=== PATIENT | female | born 1950 | race Two or more races ===

== ENCOUNTER 2018-09-19 12:40 | Emergency (ER) | payer MEDICARE, OTHER ==
[~2018-09-19] VITALS: Ht 170.2 cm; Wt 72.6 kg
[2018-09-19 12:51] VITALS: BP 148/74
[2018-09-19] MEDS ORDERED: LIDOCAINE 1%-EPI 1:100,000 20 ML VIAL ONE (14:41)
== END 2018-09-19 16:34 | disposition home or self-care (01) ==
LOC: ER 12:55
DX: S40.852A Superficial foreign body of left upper arm, initial encounter (principal); W45.8XXA Other foreign body or object entering through skin, initial encounter; Y93.89 Activity, other specified; Y92.89 Other specified places as the place of occurrence of the external cause; Y99.0 Civilian activity done for income or pay
CPT/HCPCS: 10120; 73060 ×2; 99284; A4606; J3490

== ENCOUNTER 2019-09-18 18:20 | Inpatient (IN) | payer MEDICARE, OTHER ==
[~2019-09-18] VITALS: Ht 170.2 cm; Wt 46.7 kg
--- NOTE | 2019-09-18 18:25 | NUR ---
GENA RA 61 From Home "SOB started today +Rales on arrival CPAP given RTx sats went from low 80 -low 90. BS-92, pt to bed 5, placed on monitor, dr arreguin at bedside for eval
--- NOTE | 2019-09-18 18:39 | NUR ---
urine collected and sent to lab
--- NOTE | 2019-09-18 18:50 | NUR ---
med recon nurse: notes unable to obtain home meds lists due to cognitive impairement and no family at bedside. placed a call to esther martinez () at [phone], but number has been disconnected or no longer in service. will f/u once family is available.
[2019-09-18] MEDS ORDERED: ALBUTEROL FS 2.5 MG/3 ML VIAL.NEB NEB ONE (19:00)
[2019-09-18] MEDS ORDERED: IPRATROPIUM NEB FS 0.5 MG/2.5 ML AMPUL.NEB NEB ONE (19:00)
[2019-09-18 19:14] LABS: BASOPHILS % (AUTO) 1.1 % (0.0-2.0); EOSINOPHILS % (AUTO) 2.8 % (0.0-6.0); HEMATOCRIT 49 % (33-45); HEMOGLOBIN 15.9 g/dL (11.5-14.8); LYMPHOCYTES # (AUTO) 1.3 /CMM (0.8-4.8); LYMPHOCYTES % (AUTO) 30.1 % (20.0-44.0); MEAN CORPUSCULAR HGB CONC 33 g/dl (31.0-36.0); MEAN CORPUSCULAR VOLUME 88 fL (82-100); MONOCYTES # (AUTO) 0.2 /CMM (0.1-1.30); MONOCYTES % (AUTO) 5.3 % (2.0-12.0); NEUTROPHILS # (AUTO) 2.5 /CMM (1.8-8.9); NEUTROPHILS % (AUTO) 60.7 % (43.0-81.0); PLATELET COUNT (AUTO) 121 /CMM (150-450); WHITE BLOOD COUNT (AUTO) 4.2 K/uL (4.3-11.0)
[2019-09-18 19:19] LABS: APPEARANCE,URINE Clear (CLEAR); BILIRUBIN,URINE Negative (NEGATIVE); BLOOD, URINE Moderate Ery/uL (NEGATIVE); COLOR,URINE Yellow (YELLOW); KETONES,URINE Negative (NEGATIVE); LEUKOCYTE ESTERASE ,URINE Negative (NEGATIVE); NITRITE, URINE Positive (NEGATIVE); PH,URINE 5.5 (5.0-8.0); PROTEIN,URINE Trace mg/dl (NEGATIVE); UGLUCOSE Negative (NEGATIVE); UROBILINOGEN,URINE 0.2 EU/dL (0.2)
[2019-09-18] MEDS ORDERED: ASPI-1152 PO (19:21)
[2019-09-18] MEDS ORDERED: DONE10TA44 PO (19:21)
[2019-09-18] MEDS ORDERED: CHOL500062 PO (19:21)
[2019-09-18] MEDS ORDERED: ATOR20TA PO (19:21)
[2019-09-18] MEDS ORDERED: CARB-93 PO (19:21)
[2019-09-18 19:26] LABS: CALCIUM, SERUM 9.7 mg/dL (8.5-10.1); CARBON DIOXIDE 25 mmol/L (21-32); CHLORIDE 106 mmol/L (98-107); CREATININE 1.1 mg/dL (0.6-1.3); GLUCOSE 109 mg/dL (74-106); POTASSIUM 3.9 mmol/L (3.5-5.1); SODIUM SERUM 140 mmol/L (136-145); UREA NITROGEN, BLOOD 24 mg/dL (7-18)
[2019-09-18 19:31] LABS: ALANINE AMINOTRANSFERASE < 6 U/L (12-78); ALBUMIN 3.6 g/dL (3.4-5.0); ALKALINE PHOSPHATASE 104 U/L (46-116); ASPARTATE AMINOTRANSFERASE 18 U/L (15-37); BILIRUBIN,DIRECT 0.1 mg/dL (0.0-0.2); BILIRUBIN,TOTAL 0.4 mg/dL (0.2-1.0); TOTAL PROTEIN, SERUM 6.8 g/dL (6.4-8.2)
[2019-09-18] MEDS ORDERED: IPRATROPIUM NEB FS 0.5 MG/2.5 ML AMPUL.NEB ONE (19:36)
[2019-09-18] MEDS ORDERED: ALBUTEROL FS 2.5 MG/3 ML VIAL.NEB ONE (19:36)
[2019-09-18 19:49] LABS: BACTERIA,URINE Many /HPF (None Seen); SQUAMOUS EPITHELIAL CELL,UR Few /HPF (None Seen)
[2019-09-18 20:18] LABS: ABG BASE EXCESS 0.8 mmol/L; ABG OXYGEN SATURATION 97.5 % (92.0-98.5); ABG PH 7.426 (7.350-7.450); ABG PO2 102.4 mmHg (75.0-100.0); COHb 0.6 % (0.5-1.5); MetHb 0.6 % (0.0-1.5); O2Hb 96.3 % (94.0-97.0); SITE, ABG Right Radial; VENT MODE, BG Nasal Cannula
--- NOTE | 2019-09-18 20:18 | NUR ---
CALLED [facility], PAGED SHAY
[2019-09-18] MEDS ORDERED: IV NS 0.9% 1,000 ML BAG IV ONE (20:30)
[2019-09-18] MEDS ORDERED: VANCOMYCIN 1 GM in IV D5W 250 ML IV ONE (20:30)
[2019-09-18] MEDS ORDERED: MEROPENEM 1,000 MG in IV NS 0.9% 100 ML IV ONE (20:30)
--- NOTE | 2019-09-18 21:12 | NUR ---
REPORT GIVEN TO JEANNIE ROBLES FOR KARRIE PT WILL BE TRANSPORTED TO 3RD FLOOR
[2019-09-18] MEDS ORDERED: ONDANSETRON HCL/PF 4 MG/2 ML VIAL IVP PRN (22:30)
[2019-09-18] MEDS ORDERED: ACETAMINOPHEN 325 MG TABLET PO PRN (22:30)
[2019-09-18] MEDS ORDERED: MAG HYDROX/AL HYDROX/SIMETH 30 ML UDC PO PRN (22:30)
[2019-09-18] MEDS ORDERED: ZOLPIDEM TARTRATE 5 MG TABLET PO PRN (22:30)
[2019-09-18] MEDS ORDERED: Z GUARD REMEDY 2 OZ OINT TP PRN (22:30)
[2019-09-18] MEDS ORDERED: MAGNESIUM HYDROXIDE 30 ML UDC PO PRN (22:30)
[2019-09-19 00:31] VITALS: BP 157/79
[2019-09-19 04:00] VITALS: BP 163/75
[2019-09-19 06:51] LABS: BASOPHILS % (AUTO) 0.4 % (0.0-2.0); EOSINOPHILS % (AUTO) 0.8 % (0.0-6.0); HEMATOCRIT 43 % (33-45); HEMOGLOBIN 13.9 g/dL (11.5-14.8); LYMPHOCYTES # (AUTO) 1.1 /CMM (0.8-4.8); LYMPHOCYTES % (AUTO) 16.1 % (20.0-44.0); MEAN CORPUSCULAR HGB CONC 33 g/dl (31.0-36.0); MEAN CORPUSCULAR VOLUME 86 fL (82-100); MONOCYTES # (AUTO) 0.4 /CMM (0.1-1.30); MONOCYTES % (AUTO) 5.2 % (2.0-12.0); NEUTROPHILS # (AUTO) 5.4 /CMM (1.8-8.9); NEUTROPHILS % (AUTO) 77.5 % (43.0-81.0); PLATELET COUNT (AUTO) 114 /CMM (150-450); RED BLOOD CELL COUNT(AUTO) 4.95 MIL/uL (4.0-5.2)
--- NOTE | 2019-09-19 06:56 | NUR ---
RN NOTES PATIENT ALERT TO SELF, 2LPM VIA NC, DESATURATING ON ROOM AIR, UNABLE TO CLEAR SECRETION, SUCTIONED PRN, NPO, SWALLOW EVAL, WOUND CONSULT FOR RIGHT EAR, F/U BLOOD CX
[2019-09-19 07:14] LABS: THYROID STIMULATING HORMONE 0.129 uIU/mL (0.358-3.74)
[2019-09-19 07:15] LABS: ALBUMIN 2.9 g/dL (3.4-5.0); BILIRUBIN,TOTAL 0.6 mg/dL (0.2-1.0); CALCIUM, SERUM 8.5 mg/dL (8.5-10.1); CREATININE 0.9 mg/dL (0.6-1.3); POTASSIUM 3.5 mmol/L (3.5-5.1); TOTAL PROTEIN, SERUM 5.7 g/dL (6.4-8.2)
[2019-09-19] MEDS: PANTOPRAZOLE 40 MG TABLET.DR PO SCH (07:30)
[2019-09-19] MEDS: IV NS 0.9% 1,000 ML IV PRN ×2 (07:33→15:28)
[2019-09-19] MEDS ORDERED: FEE PK DOSING 1 MIN EA MC ONE (07:39)
--- NOTE | 2019-09-19 07:47 | NUR ---
EMBEDDED CASE MANAGER OPENING NOTE PATIENT IN BED RESTING COMFORTABLY. PATIENT IN NO ACUTE DISTRESS. NO SOB NOTED. PATIENT BREATHING IS EVEN AND UNLABORED. PATIENT ON OXYGEN 2L NC SATURATING >95% SPO2. PATIENT ON CARDIAC MONITORING READING SINUS RHYTHM HR 81. PATIENT BED ALARM IS ON. SAFETY PRECAUTIONS IN PLACE. PATIENT BED IS LOCKED AND IN LOWEST POSITION. CALL LIGHT WITHIN REACH. WILL CONTINUE TO MONITOR.
[2019-09-19 08:00] VITALS: BP 163/74
[2019-09-19] MEDS: GUAIFENESIN LA 600 MG TABLET.SA PO SCH ×2 (08:09→21:00)
[2019-09-19] MEDS: VANCOMYCIN 0.75 GM in IV D5W 250 ML IV SCH ×2 (08:52→21:35)
[2019-09-19] MEDS ORDERED: MEROPENEM 1 G in IV NS 0.9% 100 ML IV SCH (09:00)
[2019-09-19] MEDS: MEROPENEM 1 G in IV NS 0.9% 100 ML IV SCH ×2 (10:17→23:11)
--- NOTE | 2019-09-19 10:30 | NUR ---
MS RN NOTE PER SPEECH THERAPIST RECOMMENDATION FOR XRAY VIDEO OF THROAT. SPOKE WITH DR. TOLEDO REGARDING ST EVALUATION RECOMMENDATION. PER DR. TOLEDO ORDERS FOR XRAY VIDEO OF THROAT.
--- NOTE | 2019-09-19 11:02 | NUR ---
WOUND CARE CONSULT: PT PRESENTS WITH INCONTINENCE AND RT EAR DRY LESION, PRESENT ON ADMISSION. RECOMMENDATIONS MADE FOR SKIN PROTECTION. DISCUSSED WITH NURSING STAFF. PT TENDS TO MOVE ABOUT IN BED AND MOVES HER LOWER EXTREMITIES FREQUENTLY WHILE DRAWING HER LEGS IN TO HER BODY. DEFER TO MD FOR EAR LESION. DISCUSSED WITH DR VILA AND MARKETING CAMPAIGN ANALYST FLORENCE. WILL SEE PRN. ESCALONA IN AGREEMENT WITH PLAN OF CARE. Addendum: 09/19/19 at 1104 by VANCE CORTEZ WNDNU Amended: Links added.
--- NOTE | 2019-09-19 12:31 | NUR ---
MS RN NOTE SPOKE WITH DR. TOLEDO, PER MD WILL CONTINUE HOME MEDS ONCE SWALLOW EVAL IS COMPLETE AND SPEECH THERAPIST APPROVES. AT THIS TIME SPEECH THERAPIST HAS NOT APPROVED AND TO MAINTAIN NPO STATUS. PER DR. TOLEDO AWARE AND MAINTAIN ON NPO STATUS.
--- NOTE | 2019-09-19 12:45 | NUR ---
MS RN NOTE INFORMED AND NOTIFIED DR. TOLEDO THAT XRAY VIDEO SWALLOW WILL BE DONE TOMORROW. PER RADIOLOGY JERRY HANKINS HAVE XRAY DONE TILL TOMORROW.
[2019-09-19 16:00] VITALS: BP 141/60
--- NOTE | 2019-09-19 18:35 | NUR ---
MS RN CLOSING NOTE PATIENT IN NO ACUTE DISTRESS. NO SOB NOTED. PATIENT BREATHING IS EVEN AND UNLABORED. PATIENT HAS BEEN SUCTIONED PRN. PATIENT ON OXYGEN 2L NC SATURATING 97% SPO2. PER DR. TOLEDO MAINTAIN NPO STATUS DUE TO PATIENT UNABLE TO PASS SWALLOW EVAL AND EXCESSIVE COUGHING. PATIENT BED ALARM IS ON. HOB IS ELEVATED. SAFETY PRECAUTIONS IN PLACE. PATIENT IV PATENT AND INTACT. PATIENT BED IS LOCKED AND IN LOWEST POSITION. CALL LIGHT WITHIN REACH. WILL ENDORSE CARE TO PM SHIFT FOR KARRIE. Addendum: 09/19/19 at 1842 by DIANA VAN RN MS RN CLOSING NOTE PATIENT IN NO ACUTE DISTRESS. NO SOB NOTED. PATIENT BREATHING IS EVEN AND UNLABORED. PATIENT HAS BEEN SUCTIONED PRN. PATIENT ON OXYGEN 2L NC SATURATING 97% SPO2. PER DR. TOLEDO MAINTAIN NPO STATUS DUE TO PATIENT UNABLE TO PASS SWALLOW EVAL AND EXCESSIVE COUGHING. PATIENT BED ALARM IS ON. HOB IS ELEVATED. PATIENT KEPT CLEAN, DRY AND COMFORTABLE THROUGHOUT MY SHIFT.SAFETY PRECAUTIONS IN PLACE. PATIENT IV PATENT AND INTACT. PATIENT BED IS LOCKED AND IN LOWEST POSITION. CALL LIGHT WITHIN REACH. WILL ENDORSE CARE TO PM SHIFT FOR KARRIE.
--- NOTE | 2019-09-19 19:30 | NUR ---
ms edison initial notes received report from am nurse while doing our rounds and seen pt in bed awake and confused, bedbound . no signs of any acute distress noted. respiration even and non-labored. she still with IVF infusing well. kept her warm and comfortable at all times. on semi fowlers position with side rails x3 up and bed in low and lock and position . will continue monitoring.
[2019-09-19 20:00] VITALS: BP 153/62
[2019-09-20] MEDS: IV NS 0.9% 1,000 ML IV PRN (04:21)
--- NOTE | 2019-09-20 06:52 | NUR ---
MS SEMICONDUCTOR LAB TECHNICIAN CLOSING NOTES PT AWAKE AND ALERT NO SIGNS OF ANY DISTRESS OR ANY DISCOMFORT NOTED. STABLE KYLE THE NIGHT . IVF NS AT 75ML.HR STILL INFUSING. PT STILL NPO FOR SWALLOW EVAL TODAY. KEPT HER WARM AND COMFORTABLE AT ALL TIMES. BED IN LOW AND LOCK IN POSITION WITH SIDE RAILS X3 UP. WILL ENDORSE TO AM NURSE FOR CONTINUITY OF CARE.
--- NOTE | 2019-09-20 07:15 | NUR ---
M/S RN NOTES PATIENT AWAKE IN BED, NO RESPIRATORY DISTRESS, NO C/O PAIN AT THIS TIME. SKIN WARM TO TOUCH. IV NS INFUSING ON THE RFA #20G INTACT AND PATENT. LFA #20G SL, INTACT AND PATENT. PATIENT'S NEEDS ATTENDED, BED ON LOWEST LOCKED POSITION, CALL LIGHT WITHIN REACH. WILL CONTINUE TO MONITOR.
[2019-09-20 08:00] VITALS: BP_SYST 112; BP_SYST 148; BP_DIAS 58; BP_DIAS 65
[2019-09-20 08:17] LABS: BASOPHILS % (AUTO) 0.5 % (0.0-2.0); EOSINOPHILS % (AUTO) 3.9 % (0.0-6.0); HEMATOCRIT 42 % (33-45); HEMOGLOBIN 13.6 g/dL (11.5-14.8); LYMPHOCYTES # (AUTO) 0.7 /CMM (0.8-4.8); LYMPHOCYTES % (AUTO) 16.3 % (20.0-44.0); MEAN CORPUSCULAR HGB CONC 33 g/dl (31.0-36.0); MEAN CORPUSCULAR VOLUME 86 fL (82-100); MONOCYTES # (AUTO) 0.2 /CMM (0.1-1.30); MONOCYTES % (AUTO) 4.9 % (2.0-12.0); NEUTROPHILS # (AUTO) 3.3 /CMM (1.8-8.9); NEUTROPHILS % (AUTO) 74.4 % (43.0-81.0); PLATELET COUNT (AUTO) 114 /CMM (150-450); RED BLOOD CELL COUNT(AUTO) 4.86 MIL/uL (4.0-5.2); WHITE BLOOD COUNT (AUTO) 4.5 K/uL (4.3-11.0)
[2019-09-20] MEDS: PANTOPRAZOLE 40 MG TABLET.DR PO SCH (08:27)
[2019-09-20 08:47] LABS: CALCIUM, SERUM 8.7 mg/dL (8.5-10.1); CREATININE 0.7 mg/dL (0.6-1.3); MAGNESIUM 2.1 mg/dL (1.8-2.4); PHOSPHORUS 2.8 mg/dL (2.5-4.9); POTASSIUM 3.3 mmol/L (3.5-5.1)
[2019-09-20] MEDS: VANCOMYCIN 0.75 GM in IV D5W 250 ML IV SCH (09:00)
[2019-09-20] MEDS: GUAIFENESIN LA 600 MG TABLET.SA PO SCH ×2 (09:00→20:36)
[2019-09-20] MEDS: MEROPENEM 1 G in IV NS 0.9% 100 ML IV SCH ×2 (10:07→21:27)
[2019-09-20] MEDS ORDERED: POTASSIUM CHLORIDE 20 MEQ TAB.PRT.SR PO ONE (12:30)
[2019-09-20] MEDS: POTASSIUM CL. PREMIX PERIPHER. 50 ML IV SCH ×4 (13:09→16:27)
[2019-09-20 16:00] VITALS: BP 140/85
--- NOTE | 2019-09-20 19:00 | NUR ---
M/S RN NOTES PATIENT RESTING IN BED, NO RESPIRATORY DISTRESS, NO C/O PAIN AT THIS TIME. SKIN WARM TO TOUCH, IV ACCESS SITES INTACT AND PATENT. PATIENT STILL ON NPO STATUS. PATIENT'S NEEDS ATTENDED, BED ON LOWEST LOCKED POSITION, CALL LIGHT WITHIN REACH.
--- NOTE | 2019-09-20 19:46 | NUR ---
MS RN NOTES PATIENT IN BED, AWAKE, NONVERBAL. ALERT AND ORIENTED X 1. BREATHING EVEN AND UNLABORED ON ROOM AIR. SHOWS NO SIGNS OF ACUTE RESPIRATORY DISTRESS. NO ACUTE PAIN. . IV ON LFA 22G AND RFA RUNNING NS AT 75ML/HR. SHOWS NO SIGNS OF INFILTRATION NO REDNESS. SAFETY PRECAUTIONS IN PLACE. BED IN LOWEST POSITION, LOCKED, AND CALL LIGHT KEPT WITHIN REACH. WILL CONTINUE TO MONITOR.
[2019-09-20 20:00] VITALS: BP 165/67
[2019-09-20 20:30] VITALS: BP 157/72
--- NOTE | 2019-09-21 02:58 | NUR ---
MS RN NOTES PATIENT IS NPO AND CHECKED PATIENT BG 62. PAGED DR. DAY FOR ORDERS. WILL CONTINUE TO MONITOR.
[2019-09-21] MEDS: IPRATROPIUM NEB FS 0.5 MG/2.5 ML AMPUL.NEB NEB PRN ×2 (03:19→21:07)
[2019-09-21] MEDS: ALBUTEROL FS 2.5 MG/3 ML VIAL.NEB NEB PRN ×2 (03:19→21:07)
--- NOTE | 2019-09-21 03:20 | NUR ---
MS RN NOTES RECEIVED ORDERS FROM SHAY TO CHANGE IV TO D5NS AT 75ML/HR. ORDERS VERIFIED, CARRIED OUT. WILL CONTINUE TO MONITOR.
[2019-09-21] MEDS: IV D5/ 0.9% NACL 1,000 ML IV PRN (03:29)
--- NOTE | 2019-09-21 06:47 | NUR ---
MS RN NOTES PATIENT IN BED, WITH INTERMITTENT SLEEP, NONVERBAL. ALERT AND ORIENTED X 1. BREATHING EVEN AND UNLABORED ON ROOM AIR. SHOWS NO SIGNS OF ACUTE RESPIRATORY DISTRESS. NO ACUTE PAIN. . IV ON LFA 22G AND RFA RUNNING D5NS AT 75ML/HR. SHOWS NO SIGNS OF INFILTRATION NO REDNESS. ALL DUE MEDICATIONS GIVEN. SAFETY PRECAUTIONS IN PLACE. BED IN LOWEST POSITION, LOCKED, AND CALL LIGHT KEPT WITHIN REACH. WILL ENDORSE TO ONCOMING NURSE.
[2019-09-21 06:55] LABS: BASOPHILS % (AUTO) 0.7 % (0.0-2.0); HEMATOCRIT 41 % (33-45); HEMOGLOBIN 13.2 g/dL (11.5-14.8); LYMPHOCYTES # (AUTO) 0.5 /CMM (0.8-4.8); LYMPHOCYTES % (AUTO) 14.3 % (20.0-44.0); MEAN CORPUSCULAR HGB CONC 33 g/dl (31.0-36.0); MEAN CORPUSCULAR VOLUME 85 fL (82-100); MONOCYTES # (AUTO) 0.2 /CMM (0.1-1.30); MONOCYTES % (AUTO) 6.4 % (2.0-12.0); NEUTROPHILS # (AUTO) 2.8 /CMM (1.8-8.9); NEUTROPHILS % (AUTO) 74.6 % (43.0-81.0); PLATELET COUNT (AUTO) 115 /CMM (150-450); RED BLOOD CELL COUNT(AUTO) 4.76 MIL/uL (4.0-5.2); WHITE BLOOD COUNT (AUTO) 3.8 K/uL (4.3-11.0)
[2019-09-21 07:18] LABS: CALCIUM, SERUM 8.3 mg/dL (8.5-10.1); CREATININE 0.7 mg/dL (0.6-1.3); PHOSPHORUS 2.1 mg/dL (2.5-4.9); POTASSIUM 3.3 mmol/L (3.5-5.1)
--- NOTE | 2019-09-21 07:20 | NUR ---
M/S RN NOTES PATIENT AWAKE IN BED, NO RESPIRATORY DISTRESS, NO S/S OF PAIN OR DISCOMFORT. SKIN WARM TO TOUCH, IV ACCESS SITES INTACT AND PATENT, D5 NS INFUSING ON THE RFA #22G @ 75ML/HR. PATIENT'S NEEDS ATTENDED, BED ON LOWEST LOCKED POSITION, CALL LIGHT WITHIN REACH. WILL CONTINUE TO MONITOR.
[2019-09-21] MEDS: PANTOPRAZOLE 40 MG TABLET.DR PO SCH (07:30)
[2019-09-21 08:00] VITALS: BP 117/67
[2019-09-21] MEDS: GUAIFENESIN LA 600 MG TABLET.SA PO SCH ×2 (09:00→21:00)
--- NOTE | 2019-09-21 09:23 | NUR ---
WOUND CARE CONSULT: PT PRESENTS WITH LESION TO RT EAR, UNKNOWN ETIOLOGY WITH SOME DRAINAGE NOTED TO INSIDE OF EAR, PRESENT ON ADMISSION. RECOMMEND SURGICAL CONSULT. DISCUSSED WITH PMD. DR PARIS REDMOND NOTIFIED OF SURGICAL CONSULT REQUEST. RECOMMENDATIONS MADE FOR SKIN PROTECTION. DISCUSSED WITH NURSING STAFF. WILL SEE PRN. Addendum: 09/21/19 at 0924 by VANCE CORTEZ WNDNU Amended: Links added.
[2019-09-21] MEDS: MEROPENEM 1 G in IV NS 0.9% 100 ML IV SCH ×2 (10:34→21:15)
[2019-09-21] MEDS: POTASSIUM CL. PREMIX PERIPHER. 50 ML IV SCH ×4 (10:35→17:55)
[2019-09-21] MEDS ORDERED: Sodium Phosphate 15 MMOL in IV D5W 250 ML IV ONE (13:00)
[2019-09-21 16:00] VITALS: BP 167/85
[2019-09-21] MEDS: hydrALAZINE HCL IV 20 MG VIAL IV PRN (16:52)
[2019-09-21 20:00] VITALS: BP 150/70
--- NOTE | 2019-09-21 20:35 | NUR ---
RN NOTES: RECEIVED AWAKE ON BED,EYES OPEN, NON VERBAL , SHE HAS GOOD EYE CONTACT WHEN RN TALK TO HER AND INTRODUCE MYSELF, A/0X1, RESPOND TO HER NAME AND PER ENDORSEMENT SHE IS ABLE TO UNDERSTAND SIMPLE INSTRUCTION ADN ANSWER USING GESTURE.2 IV SITE, 1ST:LFA G#22, 2ND:RFA G#22 WITH NS AT 75 ML/HR, INTACT AND PATENT. ORIENTED TO UNIT AND STAFF, BED, FALL, SAFETY AND ASPIRATION PRECAUTION OBSERVED, BED LOW AND LOCKED,CALL LIGHT WITHIN EASY REACH.INCONTINENT BOTH B/B. Addendum: 09/22/19 at 0134 by KELVIN SHER RN CORRECTION: IVF OF D5NS AT 75 ML/HR ONGOING NOT NORMAL SALINE ONLY.
--- NOTE | 2019-09-21 20:49 | NUR ---
RN NOTES: AROUND 2029 HER CALLED ASKING REGARDING THE PROCEDURE FOR PEG INSERTION, EXPLAINED TO HIM THAT SHE MIGHT HAVE IT TOMORROW BUT ITS NOT YET CONFIRMED, HE STRONGLY REQUEST HE WANTS TO SPEAK WITH THE GI DOCTOR PRIOR TO THE PROCEDURE AND HE WANTS EXPLANATION HOW IT WILL BE DONE. WILL ENDORSE TOMORROW TO NOTIFY THE ONCE GI CAME IN.PATIENT REMAINED ON NPO.
--- NOTE | 2019-09-21 20:57 | NUR ---
RN NOTES: NOTED WITH ON AND OFF COUGH, CALLED RT TO RENDER PRN NEBULIZATION.AWAITING.
--- NOTE | 2019-09-21 21:08 | NUR ---
RN NOTES: MUCINEX PO NOT GIVEN, PATIENT IS ON NPO, FOR POSSIBLE PROCEDURE TOMORROW, RT CAME NEBULIZATION RENDERED, PRN FOR COUGH.
--- NOTE | 2019-09-22 01:37 | NUR ---
RN NOTES: AFTER NEBULIZATION SHE LOOKS MORE COMFORTABLE,NO COUGH NOTED SINCE 0000, ABLE TO REST AND SLEEP, NEEDS ANTICIPATED, REPOSITIONING DONE, BRIEF CHANGE, SKIN TREATMENT RENDERED.CALL LIGHT KEPT WITHIN EASY REACH, ON CLOSE VISUAL CHECK.
[2019-09-22] MEDS: IV D5/ 0.9% NACL 1,000 ML IV PRN ×2 (01:46→17:20)
[2019-09-22 06:32] LABS: BASOPHILS % (AUTO) 0.8 % (0.0-2.0); EOSINOPHILS % (AUTO) 8.8 % (0.0-6.0); HEMATOCRIT 42 % (33-45); HEMOGLOBIN 13.6 g/dL (11.5-14.8); LYMPHOCYTES # (AUTO) 0.9 /CMM (0.8-4.8); LYMPHOCYTES % (AUTO) 30.2 % (20.0-44.0); MEAN CORPUSCULAR HGB CONC 33 g/dl (31.0-36.0); MEAN CORPUSCULAR VOLUME 85 fL (82-100); MONOCYTES # (AUTO) 0.4 /CMM (0.1-1.30); MONOCYTES % (AUTO) 12.6 % (2.0-12.0); NEUTROPHILS # (AUTO) 1.5 /CMM (1.8-8.9); NEUTROPHILS % (AUTO) 47.6 % (43.0-81.0); PLATELET COUNT (AUTO) 122 /CMM (150-450); WHITE BLOOD COUNT (AUTO) 3.1 K/uL (4.3-11.0)
[2019-09-22 06:38] LABS: CALCIUM, SERUM 8.4 mg/dL (8.5-10.1); CREATININE 0.7 mg/dL (0.6-1.3); PHOSPHORUS 2.6 mg/dL (2.5-4.9); POTASSIUM 3.4 mmol/L (3.5-5.1)
--- NOTE | 2019-09-22 07:24 | NUR ---
RN NOTES: MORNING CARE DONE AT 0600, NO BM, SHE PEE ONLY, CLEAN AND CHANGED, REPOSITIONED, KEPT COMFORTABLE IN BED, NOT IN PAIN, ENDORSED FOR CONTINUITY OF CARE, TO OBTAIN CONSENT FOR PEG INSERTION AT 1230PM, PRE-OP CHECKLIST STARTED, AWAITING FOR HER , HE WANTS TO SPEAK WITH THE DOCTOR.
[2019-09-22] MEDS: PANTOPRAZOLE 40 MG TABLET.DR PO SCH (07:30)
--- NOTE | 2019-09-22 07:30 | NUR ---
RN NOTES RECEIVED PATIENT IN BED RESTING COMFORTABLY IN MODERATE HIGH BACK REST, EYES OPEN, NON VERBAL, A/0X1, RESPOND TO HER NAME AND PER ENDORSEMENT SHE IS ABLE TO UNDERSTAND SIMPLE INSTRUCTION AND ANSWER USING GESTURE. IVF OF D5NS AT 75 ML/HR, INTACT AND PATENT, SAFETY AND ASPIRATION PRECAUTION, BED LOW AND LOCKED,CALL LIGHT WITHIN EASY REACH. WILL CONTINUE TO MONITOR.
--- NOTE | 2019-09-22 07:41 | NUR ---
RN NOTES: -AWAKE, IVF ONGOING, NOT IN PAIN, ENDORSED FOR CONTINUITY OF CARE.KEPT NPO.
[2019-09-22 08:23] VITALS: BP 153/66
[2019-09-22] MEDS: GUAIFENESIN LA 600 MG TABLET.SA PO SCH ×2 (08:47→20:09)
[2019-09-22] MEDS: MEROPENEM 1 G in IV NS 0.9% 100 ML IV SCH (09:20)
[2019-09-22] MEDS: POTASSIUM CL. PREMIX PERIPHER. 50 ML IV SCH ×2 (10:00→11:20)
[2019-09-22] MEDS ORDERED: TETRACAINE/BENZOCAINE/BUTAMBEN 56 GM SPRAY TP ONE (12:34)
--- NOTE | 2019-09-22 12:49 | NUR ---
RN NOTES PATIENT PICKED UP BY HOSPITAL STAFF FROM SURGERY VIA GURNEY, PATIENT GOING FOR SURGERY, ON BEDSIDE. NO SIGNS OF ANY DISTRESS NOTED.
--- NOTE | 2019-09-22 15:05 | NUR ---
RN NOTES CAMEBACK FROM SURGERY, PEG PLACEMENT DONE AND SUCCESSFUL, NO SIGNS OF DISTRESS NOTED AT THIS TIME. NO NEW ORDERS WILL CONTINUE TO MONITOR.
[2019-09-22] MEDS: HYDROCODONE/APAP 5/325MG 1 EACH TABLET PO PRN ×2 (15:47→22:05)
[2019-09-22] MEDS ORDERED: MIDAZOLAM HCL 2 MG/2ML VIAL IV ONE (15:52)
[2019-09-22] MEDS: CEFAZOLIN 1 GM in IV D5W 50 ML IV SCH (17:16)
[2019-09-22] MEDS: hydrALAZINE HCL IV 20 MG VIAL IV PRN (17:20)
[2019-09-22 18:08] VITALS: BP 150/80
--- NOTE | 2019-09-22 18:37 | NUR ---
RN NOTES PATIENT IN BED RESTING COMFORTABLY IN MODERATE HIGH BACK REST, EYES OPEN, NON VERBAL, A/O X1, ABLE TO UNDERSTAND SIMPLE INSTRUCTION AND ANSWER USING GESTURE. S/P PEG TUBE PLACEMENT TODAY, IVF OF D5NS AT 75 ML/HR, INTACT AND PATEN, SAFETY PRECAUTION, BED LOW AND LOCKED,CALL LIGHT WITHIN EASY REACH. WILL ENDORSE TO CAREER PLACEMENT SERVICES COUNSELOR NURSE FOR KARRIE.
--- NOTE | 2019-09-22 19:27 | NUR ---
MS RN OPENING NOTE RECEIVED PATIENT IN BED. A/OX1. PATIENT IS ABLE TO FOLLOW SIMPLE COMMANDS, PER REPORT ANSWERS QUESTIONS WITH FINGERS, ONE FOR YES 2 FOR NO. ON OXYGEN 2L/MIN VIA NASAL CANNULA. RESPIRATIONS ARE EVEN AND UNLABORED. NO S/S SOB NOTED. NO S/S OF PAIN AT THIS TIME. IN NO APPARENT DISTRESS. IV ACCESS IN LFA#22 PATENT AND SALINE LOCKED, RFA#22 IS LEAKING WILL REMOVE IV ACCESS. PATIENT IS S/P PEG PLACEMENT. GTUBE IS PRESENT, DRESSING INTACT, WRAPPED WITH ABDOMINAL BINDER. BED IS LOW AND LOCKED, HOB ELEVATED IN HIGH FOWLERS, SIDE RIALS UP X2, BED ALARM ON. CALL LIGHT WITHIN REACH. WILL CONTINUE TO MONITOR.
[2019-09-22 20:00] VITALS: BP 146/54
--- NOTE | 2019-09-22 22:06 | NUR ---
MS RN NOTE ADMINISTERED PRN NORCO 5/325 FOR PAIN ASSESS BY FLACC SCALE. PATIENT IS MOANING, RESTLESS, KICKING, GUARDING. PATIENT WAS ABLE TO CONFIRM HER PAIN BY USING HER FINGERS. ONE FOR YES SHE IS IN PAIN. WILL CONTINUE TO MONITOR.
[2019-09-23] MEDS: CEFAZOLIN 1 GM in IV D5W 50 ML IV SCH ×3 (01:24→17:23)
--- NOTE | 2019-09-23 01:34 | NUR ---
MS RN NOTE ADMINISTERED PRN TYLENOL 650MG FOR PAIN. PATIENT WAS MOANING, KICKING, CRYING. INFORMED HER I AM NOT ABLE TO PROVIDE PAIN MEDICATION AT THIS TIME AND THAT TYLENOL IS AVAILABLE. ASKED IF SHE WOULD LIKE THE TYLENOL SHE RAISED ONE FINGER INDICATING YES. WILL CONTINUE TO MONITOR.
[2019-09-23] MEDS: HYDROCODONE/APAP 5/325MG 1 EACH TABLET PO PRN (04:14)
--- NOTE | 2019-09-23 04:15 | NUR ---
MS RN NOTE ADMINISTERED PRN NORCO 5/325 FOR PAIN USING FLACC SCALE. PATIENT IS MOANING, CRYING AND KICKING, USED ONE FINGER TO SIGNIFY YES SHE IS IN PAIN. WILL CONTINUE TO MONITOR.
--- NOTE | 2019-09-23 06:12 | NUR ---
MS RN CLOSING NOTE PATIENT IN BED. A/OX1. PATIENT REMAINS ABLE TO FOLLOW SIMPLE COMMANDS, ANSWERS QUESTIONS WITH FINGERS, ONE FOR YES 2 FINGERS FOR NO. ON OXYGEN 2L/MIN VIA NASAL CANNULA. RESPIRATIONS ARE EVEN AND UNLABORED. NO SOB NOTED. MANAGED PAIN WITH NORCO 5/325 THROUGHOUT NIGHT.NO DISTRESS NOTED. IV ACCESS MAINTAINED IN LFA#22 PATENT AND SALINE LOCKED, RFA#22 RUNNING D5NS@75ML/HR. PATIENT IS S/P PEG PLACEMENT. GTUBE IS MAINTAINED REMAINS WRAPPED WITH ABDOMINAL BINDER. BED REMAINS LOW AND LOCKED, HOB ELEVATED IN HIGH FOWLERS, SIDE RIALS UP X3, BED ALARM ON. CALL LIGHT WITHIN REACH. WILL ENDORSE TO NEXT SHIFT
[2019-09-23 06:14] LABS: BASOPHILS % (AUTO) 0.3 % (0.0-2.0); EOSINOPHILS % (AUTO) 4.6 % (0.0-6.0); HEMATOCRIT 43 % (33-45); HEMOGLOBIN 13.9 g/dL (11.5-14.8); LYMPHOCYTES # (AUTO) 1.1 /CMM (0.8-4.8); LYMPHOCYTES % (AUTO) 20.3 % (20.0-44.0); MEAN CORPUSCULAR HGB CONC 33 g/dl (31.0-36.0); MEAN CORPUSCULAR VOLUME 86 fL (82-100); MONOCYTES # (AUTO) 0.6 /CMM (0.1-1.30); MONOCYTES % (AUTO) 10.3 % (2.0-12.0); NEUTROPHILS # (AUTO) 3.6 /CMM (1.8-8.9); NEUTROPHILS % (AUTO) 64.5 % (43.0-81.0); PLATELET COUNT (AUTO) 138 /CMM (150-450); RED BLOOD CELL COUNT(AUTO) 4.99 MIL/uL (4.0-5.2); WHITE BLOOD COUNT (AUTO) 5.6 K/uL (4.3-11.0)
[2019-09-23 06:57] LABS: CALCIUM, SERUM 8.7 mg/dL (8.5-10.1); CREATININE 0.7 mg/dL (0.6-1.3); MAGNESIUM 1.9 mg/dL (1.8-2.4); POTASSIUM 3.7 mmol/L (3.5-5.1)
--- NOTE | 2019-09-23 07:30 | NUR ---
MS/RN Opening note Received patient AO x 1 non verbal, able to responds all stimuli. patient s/p peg, no residual observed, does no appears pain or any this Comfort at this time. Respiratory even and unlabored with oxygen at 2LPM. No s/s of adverse reaction from atb therapy. Skin iswarm to touch, clean/dry, intact new g tube site and IV site. Keep lower position of bed with elevated HOB. Call light within reach, will continue to monitor.
[2019-09-23] MEDS: PANTOPRAZOLE 40 MG TABLET.DR PO SCH (07:48)
[2019-09-23 08:00] VITALS: BP 153/68
[2019-09-23] MEDS: GUAIFENESIN LA 600 MG TABLET.SA PO SCH ×2 (09:03→21:19)
[2019-09-23] MEDS ORDERED: JEVITY 1.2 CAL 1,000 ML BOTTLE GT PRN (10:00)
[2019-09-23] MEDS: JEVITY 1.2 CAL 1,000 ML BOTTLE GT PRN (10:45)
[2019-09-23] MEDS ORDERED: NEUTRA PHOS 1 POWD.PACKET GT ONE (11:00)
[2019-09-23 16:00] VITALS: BP 142/60
--- NOTE | 2019-09-23 18:50 | NUR ---
MS/RN Closing note Patient in bed comfortably, does no appears pain or any discomfort. Pt started g tube feeding at 40 ml rat this time and torelated. Skin is warm to touch, clean/dry, intact IV site. Respiratory even and unlabored with oxygen at 2PLM. Keep lower position of the bed with elevated HOB, Call light within reach, will endorse hotel night auditor.
--- NOTE | 2019-09-23 19:38 | NUR ---
MS RN OPENING NOTES PATIENT RECEIVED RESTING IN BED A/O X 1, NONVERBAL. ON 2L OF O2 VIA NC BREATHING EVEN AND UNLABORED, NO SOB NOTED. NO SIGNS OF ACUTE DISTRESS. NO COMPLAINTS OF PAIN OR DISCOMFORT, NO FACIAL GRIMACING NOTED. G TUBE NOTED AND INTACT RUNNING 40 CC/ HR. IV ON L FA #22 RUNNING D5NS @ 75 ML/HR. SAFETY PRECAUTIONS IN PLACE WITH BED IN LOWEST POSITION, CALL LIGHT WITHIN REACH, BREAKS ON, AND SIDE RAILS UP. WILL CONTINUE TO MONITOR THROUGHOUT THE NIGHT.
[2019-09-23 19:50] VITALS: BP 153/93
[2019-09-23 20:00] VITALS: BP 153/98
[2019-09-23] MEDS: IV D5/ 0.9% NACL 1,000 ML IV PRN (21:33)
--- NOTE | 2019-09-24 01:00 | NUR ---
MS RN NOTES G TUBE RESIDUAL LESS THAN 60, INCREASED FEEDING TO 60 / HR. WILL CONTINUE TO MONITOR
[2019-09-24] MEDS: CEFAZOLIN 1 GM in IV D5W 50 ML IV SCH ×2 (01:43→10:05)
--- NOTE | 2019-09-24 06:30 | NUR ---
MS RN CLOSING NOTES PATIENT RESTING IN BED A/O X 1, NONVERBAL. ON 2L OF O2 VIA NC BREATHING EVEN AND UNLABORED, NO SOB NOTED. NO SIGNS OF ACUTE DISTRESS. NO COMPLAINTS OF PAIN OR DISCOMFORT, NO FACIAL GRIMACING NOTED. G TUBE NOTED AND INTACT RUNNING 65 CC/ HR. IV ON L FA #22 RUNNING D5NS @ 75 ML/HR. SAFETY PRECAUTIONS IN PLACE WITH BED IN LOWEST POSITION, CALL LIGHT WITHIN REACH, BREAKS ON, AND SIDE RAILS UP. PATIENT WAS KEPT CLEAN AND DRY THROUGHOUT THE NIGHT, ALL NEEDS ATTENDED TO. WILL ENDORSE TO ONCOMING SHIFT ABOUT KARRIE.
[2019-09-24 06:38] LABS: BASOPHILS % (AUTO) 0.3 % (0.0-2.0); EOSINOPHILS % (AUTO) 5.8 % (0.0-6.0); HEMATOCRIT 40 % (33-45); HEMOGLOBIN 13.2 g/dL (11.5-14.8); LYMPHOCYTES # (AUTO) 1.3 /CMM (0.8-4.8); LYMPHOCYTES % (AUTO) 24.9 % (20.0-44.0); MEAN CORPUSCULAR HGB CONC 33 g/dl (31.0-36.0); MEAN CORPUSCULAR VOLUME 85 fL (82-100); MONOCYTES # (AUTO) 0.5 /CMM (0.1-1.30); MONOCYTES % (AUTO) 9.8 % (2.0-12.0); NEUTROPHILS # (AUTO) 3.1 /CMM (1.8-8.9); NEUTROPHILS % (AUTO) 59.2 % (43.0-81.0); PLATELET COUNT (AUTO) 117 /CMM (150-450); RED BLOOD CELL COUNT(AUTO) 4.71 MIL/uL (4.0-5.2); WHITE BLOOD COUNT (AUTO) 5.2 K/uL (4.3-11.0)
[2019-09-24 06:52] LABS: CALCIUM, SERUM 8.3 mg/dL (8.5-10.1); CREATININE 0.7 mg/dL (0.6-1.3); MAGNESIUM 1.9 mg/dL (1.8-2.4); PHOSPHORUS 2.5 mg/dL (2.5-4.9); POTASSIUM 3.5 mmol/L (3.5-5.1)
--- NOTE | 2019-09-24 07:30 | NUR ---
MS/RN Opening note Received patient AO x 1 non verbal, able to responds all stimuli. patient s/p peg, and pt tolerated formula at 65ml, no residual observed at this time. Does no appears pain or any this Comfort at this time. Respiratory even and unlabored with oxygen at 2LPM. No s/s of adverse reaction from atb therapy. Skin iswarm to touch, clean/dry, intact new g tube site and IV site. Keep lower position of bed with elevated HOB. Call light within reach, will continue to monitor.
[2019-09-24] MEDS: PANTOPRAZOLE 40 MG TABLET.DR PO SCH (07:57)
[2019-09-24] MEDS: GUAIFENESIN LA 600 MG TABLET.SA PO SCH (08:19)
[2019-09-24] MEDS: JEVITY 1.2 CAL 1,000 ML BOTTLE GT PRN (08:19)
[2019-09-24 09:00] VITALS: BP 147/57
[2019-09-24] MEDS: IV D5/ 0.9% NACL 1,000 ML IV PRN (10:16)
--- NOTE | 2019-09-24 13:20 | NUR ---
Patient going transfer, given report [facility]/Nick ROBLES.
--- NOTE | 2019-09-24 14:30 | NUR ---
2EMTs picked up patient and given report, pt left accompanied by . in stable condition. Pt was wearing with yellow color ring with red color stone.
== END 2019-09-24 14:40 | DRG 189 ==
LOC: ER 18:21 → TELE 20:57 → MED 09-19 09:16
PROVIDERS: ADMIT Hospitalist; ATTEND Student in an Organized Health Care Education/Training Program
PROC: 0DH63UZ Insertion of Feeding Device into Stomach, Percutaneous Approach (ICD-10-PCS; principal; 2019-09-22)
DX: J96.01 Acute respiratory failure with hypoxia (principal); E43 Unspecified severe protein-calorie malnutrition; R53.2 Functional quadriplegia; D68.59 Other primary thrombophilia; I50.32 Chronic diastolic (congestive) heart failure; N39.0 Urinary tract infection, site not specified; E87.2 Acidosis; Z68.1 Body mass index [BMI] 19.9 or less, adult; R64 Cachexia; E86.0 Dehydration; G20 Parkinson's disease; I11.0 Hypertensive heart disease with heart failure; Z79.82 Long term (current) use of aspirin; Z90.49 Acquired absence of other specified parts of digestive tract; Z79.899 Other long term (current) drug therapy; Z74.01 Bed confinement status; D69.6 Thrombocytopenia, unspecified; G31.85 Corticobasal degeneration; I70.0 Atherosclerosis of aorta; D75.1 Secondary polycythemia; K29.70 Gastritis, unspecified, without bleeding; R13.10 Dysphagia, unspecified; Z82.49 Family history of ischemic heart disease and other diseases of the circulatory system; E78.5 Hyperlipidemia, unspecified; F02.80 Dementia in other diseases classified elsewhere, unspecified severity, without behavioral disturbance, psychotic disturbance, mood disturbance, and anxiety; K26.9 Duodenal ulcer, unspecified as acute or chronic, without hemorrhage or perforation
CPT/HCPCS: 36415; 36600; 43246; 71045-TC; 74230-TC; 80048-TC; 80053-TC; 80061-TC; 80076-TC; 80202-TC; 81000-TC; 82803-TC; 82962-TC; 83605-TC; 83735-TC; 84100-TC; 84443-TC; 84484-TC; 85025-TC; 85730-TC; 87040-TC; 87081-TC; 87086-TC; 87186-TC; 92611-TC; 94799-TC; A9563; G0378; J0360; J0690; J2185; J2250; J3370; J3480; J7030; J7040; J7042; J7050; J7060

== ENCOUNTER 2021-03-13 20:42 | Inpatient (IN) | payer MEDICARE, OTHER ==
[~2021-03-13] VITALS: Ht 162.6 cm; Wt 38.6 kg
[~2021-03-13 20:42] MED LIST: ASPI-1420 PEG; ATOR20TA PEG; CARB-93 PEG; CHOL500062 PEG; DONE10TA44 PEG
--- NOTE | 2021-03-13 20:50 | NUR ---
PATIENT CAME TO ER BED 5 BIBRA FROM HOME. PATIENT WAS ON 2L N/C WHEN HOMEHEALTH NURSE NOTICED 82% O2 SATURATION. PATIENT WAS PLACED ON 4L N/C WITH 94% O2 SATURATION. PATIENT HX OF CVA AND DEMENTIA. PATIENT IS AAOX0 AND NONVERBAL AT BASELINE. PATIENT IS BREATHING EVENLY AND UNLABORED ON 4L N/C @ 89%. PATIENT IS CONNECTED TO THE SERVICE DESK ANALYST.
--- NOTE | 2021-03-13 21:47 | NUR ---
CALLED FOR COVID SWABS
[2021-03-13 21:48] LABS: BASOPHILS % (AUTO) 0.7 % (0.0-2.0); EOSINOPHILS % (AUTO) 1.8 % (0.0-6.0); HEMATOCRIT 45 % (33-45); HEMOGLOBIN 14.9 g/dL (11.5-14.8); LYMPHOCYTES # (AUTO) 1.6 K/uL (0.8-4.8); LYMPHOCYTES % (AUTO) 23.9 % (20.0-44.0); MEAN CORPUSCULAR HGB CONC 33 g/dl (31.0-36.0); MEAN CORPUSCULAR VOLUME 91 fL (82-100); MONOCYTES # (AUTO) 0.5 K/uL (0.1-1.30); MONOCYTES % (AUTO) 7.1 % (2.0-12.0); NEUTROPHILS # (AUTO) 4.4 K/uL (1.8-8.9); NEUTROPHILS % (AUTO) 66.5 % (43.0-81.0); PLATELET COUNT (AUTO) 132 K/uL (150-450); RED BLOOD CELL COUNT(AUTO) 4.99 MIL/uL (4.0-5.2); WHITE BLOOD COUNT (AUTO) 6.6 K/uL (4.3-11.0)
[2021-03-13 21:57] LABS: CARBON DIOXIDE 29 mmol/L (21-32); CHLORIDE 112 mmol/L (98-107); CREATININE 0.8 mg/dL (0.6-1.3); GLUCOSE 128 mg/dL (74-106); POTASSIUM 3.6 mmol/L (3.5-5.1); SODIUM SERUM 149 mmol/L (136-145); UREA NITROGEN, BLOOD 44 mg/dL (7-18)
[2021-03-13 22:10] LABS: ALANINE AMINOTRANSFERASE 33 U/L (12-78); ALBUMIN 3.1 g/dL (3.4-5.0); ALKALINE PHOSPHATASE 87 U/L (46-116); ASPARTATE AMINOTRANSFERASE 22 U/L (15-37); BILIRUBIN,DIRECT 0.2 mg/dL (0.0-0.2); BILIRUBIN,TOTAL 0.5 mg/dL (0.2-1.0); TOTAL PROTEIN, SERUM 6.7 g/dL (6.4-8.2)
--- NOTE | 2021-03-13 22:19 | NUR ---
xray at bedside
--- NOTE | 2021-03-13 22:24 | NUR ---
covid swabs sent to lab
--- NOTE | 2021-03-13 22:30 | NUR ---
CALLED [facility] TO HAVE IMAGE READ
--- NOTE | 2021-03-13 22:45 | NUR ---
EPIC AMUSEMENT PARK ENTERTAINER PAGED FOR PANEL
[2021-03-13] MEDS ORDERED: CEFTRIAXONE 1 G in IV D5W 50 ML IV ONE (23:00)
[2021-03-13] MEDS ORDERED: AZITHROMYCIN 500 MG in IV D5W 250 ML IV ONE (23:00)
[2021-03-13] MEDS ORDERED: IV NS 0.9% 1,000 ML IV ONE (23:00)
[2021-03-13] MEDS ORDERED: AZITHROMYCIN 500 MG VIAL ONE (23:01)
[2021-03-13] MEDS ORDERED: CEFTRIAXONE 1GM BAG (ER ONLY) 50 ML IV ONE (23:03)
[2021-03-13] MEDS ORDERED: ONDANSETRON HCL/PF 4 MG/2 ML VIAL IVP PRN (23:30)
[2021-03-13] MEDS ORDERED: IV NS 0.9% 1,000 ML IV PRN (23:30)
[2021-03-13] MEDS ORDERED: ACETAMINOPHEN 325 MG TABLET PO PRN (23:30)
[2021-03-13] MEDS ORDERED: ZOLPIDEM TARTRATE 5 MG TABLET PO PRN (23:30)
[2021-03-13] MEDS ORDERED: ACETAMINOPHEN 650 MG/SUPP.RECT RC PRN (23:30)
[2021-03-13] MEDS ORDERED: Z GUARD REMEDY 2 OZ OINT TP PRN (23:30)
[2021-03-13 23:58] LABS: CREATINE KINASE, TOTAL 49 U/L (26-192); FERRITIN 79 ng/mL (8-388)
[2021-03-14 00:14] LABS: C-REACTIVE PROTEIN < 0.2 mg/dL (0.0-0.9)
--- NOTE | 2021-03-14 00:15 | NUR ---
HOFF CATH INSERTED PER MD ORDERED. STRICT STERILE TECHNIQUE OBSERVED DURING THE PROCEDURE. URINE SENT TO LAB
--- NOTE | 2021-03-14 00:16 | NUR ---
urine sent to lab
[2021-03-14 00:26] LABS: BILIRUBIN,URINE Negative (NEGATIVE); COLOR,URINE YELLOW (YELLOW); LEUKOCYTE ESTERASE ,URINE Negative (NEGATIVE); NITRITE, URINE Negative (NEGATIVE); PH,URINE 5.5 (5.0-8.0); PROTEIN,URINE Negative (NEGATIVE); UGLUCOSE Negative (NEGATIVE); UROBILINOGEN,URINE 0.2 EU/dL (0.2)
--- NOTE | 2021-03-14 04:38 | NUR ---
lab at bedside
[2021-03-14] MEDS: ENOXAPARIN SODIUM 40 MG/0.4 ML DISP.SYRIN SQ SCH (04:43)
[2021-03-14 04:50] LABS: BASOPHILS % (AUTO) 0.5 % (0.0-2.0); EOSINOPHILS % (AUTO) 2.5 % (0.0-6.0); HEMATOCRIT 44 % (33-45); HEMOGLOBIN 14.3 g/dL (11.5-14.8); LYMPHOCYTES # (AUTO) 1.7 K/uL (0.8-4.8); LYMPHOCYTES % (AUTO) 26.7 % (20.0-44.0); MEAN CORPUSCULAR HGB CONC 33 g/dl (31.0-36.0); MEAN CORPUSCULAR VOLUME 91 fL (82-100); MONOCYTES # (AUTO) 0.5 K/uL (0.1-1.30); MONOCYTES % (AUTO) 7.8 % (2.0-12.0); NEUTROPHILS % (AUTO) 62.5 % (43.0-81.0); PLATELET COUNT (AUTO) 119 K/uL (150-450); RED BLOOD CELL COUNT(AUTO) 4.83 MIL/uL (4.0-5.2); WHITE BLOOD COUNT (AUTO) 6.4 K/uL (4.3-11.0)
[2021-03-14] MEDS ORDERED: CEFTRIAXONE 1GM BAG (ER ONLY) 50 ML IV ONE (04:50)
[2021-03-14] MEDS ORDERED: ENOXAPARIN SODIUM 40 MG/0.4 ML DISP.SYRIN SQ ONE (04:50)
[2021-03-14] MEDS ORDERED: AZITHROMYCIN 500 MG VIAL ONE (04:51)
[2021-03-14 05:01] LABS: ALBUMIN 2.7 g/dL (3.4-5.0); BILIRUBIN,TOTAL 0.5 mg/dL (0.2-1.0); CALCIUM, SERUM 8.8 mg/dL (8.5-10.1); CREATININE 0.5 mg/dL (0.6-1.3); MAGNESIUM 2.5 mg/dL (1.8-2.4); PHOSPHORUS 3.1 mg/dL (2.5-4.9); POTASSIUM 3.5 mmol/L (3.5-5.1); TOTAL PROTEIN, SERUM 6.1 g/dL (6.4-8.2)
--- NOTE | 2021-03-14 06:40 | NUR ---
BED 104 AFTER CHANGE OF SHIFT
--- NOTE | 2021-03-14 07:20 | NUR ---
RN NOTE RECEIVED REPORT FROM THEATRE INSTRUCTOR AL AWAITING PATIENT FOR ADMISSION
--- NOTE | 2021-03-14 07:22 | NUR ---
REPORT GIVEN TO JOSE DE JESUS ROBLES FOR KARRIE.
--- NOTE | 2021-03-14 07:30 | NUR ---
RN NOTE RECEIVED PATIENT FROM ER, PATIENT ON O2 VIA NC @4LPM O2 SAT OF 95%, BREATHING EVENA ND UNLABORED, PATIENT HAS A GT FEEDING AND HOFF CATHETER NO HEMATURIA NOTED, BODY CHECK DONE WILL CONTINUE TO MONITOR PATIENT.
--- NOTE | 2021-03-14 07:44 | NUR ---
PATIENT TRANSFERRED TO ROOM 104 VIA ACLS PROTOCOL. IN NO DISTRES NOTED. ENDORESD TO JOSE DE JESUS ROBLES FOR KARRIE.
[2021-03-14 08:00] VITALS: BP 133/73
[2021-03-14] MEDS ORDERED: AMLO-212 PEG (08:43)
[2021-03-14] MEDS: PANTOPRAZOLE 40 MG VIAL IV SCH (09:50)
[2021-03-14 12:00] VITALS: BP 133/73
[2021-03-14] MEDS: IPRATROPIUM NEB FS 0.5 MG/2.5 ML AMPUL.NEB NEB SCH ×4 (13:26→23:30)
[2021-03-14] MEDS: ALBUTEROL HALF STRENGTH 1.25 MG/3 ML VIAL.NEB NEB SCH ×4 (13:26→23:30)
[2021-03-14] MEDS: methylPREDNISolone SOD SUCC 40 MG/ML VIAL IV SCH ×2 (13:52→20:33)
[2021-03-14 16:00] VITALS: BP 132/73
--- NOTE | 2021-03-14 17:10 | NUR ---
RN NOTE PATIENT ADMITTED TO MED SURG, PATIENT ON TUBE FEEDING JEVITY 1.2, ON O2 @4LPM VIA NASAL CANULA, SAFETY MEASURES OBSERVED, CALL LIGHT WITHIN REACH BED WHEELS LOCK, WILL CONTINUE TO MONITOR.
--- NOTE | 2021-03-14 19:07 | NUR ---
RN NOTE PATIENT OBSERVED IN BED RESPONSIVE TO VERBAL STIMULI AND LIGHT TOUCH, NON VERBAL, PATIENT ON TUBE FEEDING JEVITY 1.2, ON O2 @3LPM VIA NASAL CANULA, SAFETY MEASURES OBSERVED, CALL LIGHT WITHIN REACH BED WHEELS LOCK, WILL CONTINUE TO MONITOR. WILL ENDORSE TO NOC SHIFT.
[2021-03-14] MEDS: JEVITY 1.2 CAL 1,000 ML BOTTLE GT PRN (19:23)
[2021-03-14] MEDS: IV 1/2NS 1000 ML 1,000 ML IV PRN (19:24)
[2021-03-14 20:00] VITALS: BP 126/46
--- NOTE | 2021-03-14 20:00 | NUR ---
RN OPENING NOTE RECEIVED PT IN BED, RESPONSIVE TO VERBAL STIMULI AND LIGHT TOUCH. PT IS NON-VERBAL. PT ON 3LPM O2 VIA NC SATTING AT 98%. NO S/O PAIN SUCH FACIAL GRIMACING NOTED. PT ON GTUBE FEEDING JEVITY 1.2 @ 45ML/HR. PT WITH OHFF CATH IN PLACE DRAINING CLEAR YELLOW URINE. SAFETY PRECAUTIONS MAINTAINED. BED IN LOWEST LOCKED POSITION, HOB ELEVATED, SIDE RAILS UP X2. CALL LIGHT AND TABLE WITHIN REACH. WILL CONTINUE WITH PLAN OF CARE.
[2021-03-14] MEDS: CEFTRIAXONE 1 G in IV D5W 50 ML IV SCH (22:17)
[2021-03-14] MEDS: AZITHROMYCIN 500 MG in IV D5W 250 ML IV SCH (23:04)
--- NOTE | 2021-03-14 23:20 | NUR ---
HHN breathing TX withheld pending COVID PCR results. No SOB/resp distress noted.
[2021-03-15] MEDS: IPRATROPIUM NEB FS 0.5 MG/2.5 ML AMPUL.NEB NEB SCH ×6 (03:30→23:30)
[2021-03-15] MEDS: ALBUTEROL HALF STRENGTH 1.25 MG/3 ML VIAL.NEB NEB SCH ×6 (03:30→23:30)
[2021-03-15 04:00] VITALS: BP 128/61
[2021-03-15] MEDS: methylPREDNISolone SOD SUCC 40 MG/ML VIAL IV SCH ×3 (04:03→20:50)
--- NOTE | 2021-03-15 06:20 | NUR ---
RN CLOSING NOTE PT IS RESTING IN BED, RESPONSIVE TO VERBAL STIMULI AND LIGHT TOUCH. PT IS NON-VERBAL. PT ON 3LPM O2 VIA NC SATTING AT 100%. NO S/O PAIN SUCH FACIAL GRIMACING NOTED. PT ON GTUBE FEEDING JEVITY 1.2 @ 45ML/HR. PT WITH HOFF CATH IN PLACE DRAINING CLEAR YELLOW URINE. ALL NEEDS HAVE BEEN MET. SAFETY PRECAUTIONS MAINTAINED AT ALL TIMES. BED IN LOWEST LOCKED POSITION, HOB ELEVATED, SIDE RAILS UP X2. CALL LIGHT AND TABLE WITHIN REACH. WILL ENDORSE TO ONCOMING NURSE FOR KARRIE.
[2021-03-15 06:50] LABS: BASOPHILS % (AUTO) 0.2 % (0.0-2.0); EOSINOPHILS % (AUTO) 0.1 % (0.0-6.0); HEMATOCRIT 38 % (33-45); HEMOGLOBIN 12.7 g/dL (11.5-14.8); LYMPHOCYTES # (AUTO) 0.3 K/uL (0.8-4.8); LYMPHOCYTES % (AUTO) 5.7 % (20.0-44.0); MEAN CORPUSCULAR HGB CONC 33 g/dl (31.0-36.0); MEAN CORPUSCULAR VOLUME 91 fL (82-100); MONOCYTES # (AUTO) 0.1 K/uL (0.1-1.30); MONOCYTES % (AUTO) 1.6 % (2.0-12.0); NEUTROPHILS # (AUTO) 4.8 K/uL (1.8-8.9); NEUTROPHILS % (AUTO) 92.4 % (43.0-81.0); PLATELET COUNT (AUTO) 111 K/uL (150-450); RED BLOOD CELL COUNT(AUTO) 4.15 MIL/uL (4.0-5.2); WHITE BLOOD COUNT (AUTO) 5.2 K/uL (4.3-11.0)
[2021-03-15 07:10] LABS: CALCIUM, SERUM 8.6 mg/dL (8.5-10.1); CREATININE 0.6 mg/dL (0.6-1.3); MAGNESIUM 2.5 mg/dL (1.8-2.4); PHOSPHORUS 2.6 mg/dL (2.5-4.9); POTASSIUM 3.9 mmol/L (3.5-5.1)
[2021-03-15] MEDS: PANTOPRAZOLE 40 MG VIAL IV SCH (08:21)
[2021-03-15] MEDS: ENOXAPARIN SODIUM 40 MG/0.4 ML DISP.SYRIN SQ SCH (08:21)
--- NOTE | 2021-03-15 09:13 | NUR ---
RN NOTE PATIENT OBSERVED IN BED RESPONSIVE TO VERBAL STIMULI AND LIGHT TOUCH, NON VERBAL, PATIENT ON TUBE FEEDING JEVITY 1.2, ON O2 @4LPM VIA NASAL CANULA, SAFETY MEASURES OBSERVED, IV LEFT WRIST G18, NS 100CC/HR FLUSHING WELL, ON HOFF CATHETER DRAINING WELL VIA GRAVITY NO HEMATURIA NOTED. CALL LIGHT WITHIN REACH BED WHEELS LOCK, WILL CONTINUE TO MONITOR. .
[2021-03-15] MEDS: IV 1/2NS 1000 ML 1,000 ML IV PRN ×2 (09:44→18:32)
[2021-03-15 12:00] VITALS: BP 122/66
[2021-03-15 16:00] VITALS: BP 122/66
[2021-03-15] MEDS: JEVITY 1.2 CAL 1,000 ML BOTTLE GT PRN (17:12)
--- NOTE | 2021-03-15 18:49 | NUR ---
RN NOTE PATIENT OBSERVED IN BED RESPONSIVE TO VERBAL STIMULI AND LIGHT TOUCH, NON VERBAL, PATIENT ON TUBE FEEDING JEVITY 1.2, ON O2 @4LPM VIA NASAL CANULA, SAFETY MEASURES OBSERVED, IV LEFT WRIST G18, 1/2 NS 100CC/HR FLUSHING WELL, ON HOFF CATHETER DRAINING WELL VIA GRAVITY NO HEMATURIA NOTED. CALL LIGHT WITHIN REACH BED WHEELS LOCK, WILL CONTINUE TO MONITOR. WILL ENDORSE TO NOC SHIFT.
--- NOTE | 2021-03-15 22:00 | NUR ---
Patient refuses tuesday night wound pictures or a full skin check without pictures. Patient states "it is my body I can choose to do whatever I want. There is no reason you need to be checking my skin." Educated that it is hospital protocol to check for any skin issues especially with paraplegic patients. Patient still decline.
[2021-03-15] MEDS: CEFTRIAXONE 1 G in IV D5W 50 ML IV SCH (22:52)
--- NOTE | 2021-03-15 23:31 | NUR ---
when unable to find extra extension cord for patient's cell phone border guard patient replies to nurse "F you, get out of here!"
--- NOTE | 2021-03-15 23:32 | NUR ---
LAST 2 NOTES ON WRONG PT. CANNOT DELETE
[2021-03-15] MEDS: AZITHROMYCIN 500 MG in IV D5W 250 ML IV SCH (23:40)
[2021-03-16] MEDS: IPRATROPIUM NEB FS 0.5 MG/2.5 ML AMPUL.NEB NEB SCH ×6 (03:14→23:31)
[2021-03-16] MEDS: ALBUTEROL HALF STRENGTH 1.25 MG/3 ML VIAL.NEB NEB SCH ×6 (03:15→23:31)
[2021-03-16 04:00] VITALS: BP 137/50
[2021-03-16] MEDS: methylPREDNISolone SOD SUCC 40 MG/ML VIAL IV SCH ×2 (04:37→14:03)
[2021-03-16 06:50] LABS: BASOPHILS % (AUTO) 0.1 % (0.0-2.0); HEMATOCRIT 35 % (33-45); HEMOGLOBIN 11.8 g/dL (11.5-14.8); LYMPHOCYTES # (AUTO) 0.5 K/uL (0.8-4.8); LYMPHOCYTES % (AUTO) 10.7 % (20.0-44.0); MEAN CORPUSCULAR HGB CONC 34 g/dl (31.0-36.0); MEAN CORPUSCULAR VOLUME 90 fL (82-100); MONOCYTES # (AUTO) 0.2 K/uL (0.1-1.30); MONOCYTES % (AUTO) 4.1 % (2.0-12.0); NEUTROPHILS # (AUTO) 3.7 K/uL (1.8-8.9); NEUTROPHILS % (AUTO) 85.1 % (43.0-81.0); PLATELET COUNT (AUTO) 103 K/uL (150-450); RED BLOOD CELL COUNT(AUTO) 3.92 MIL/uL (4.0-5.2); WHITE BLOOD COUNT (AUTO) 4.3 K/uL (4.3-11.0)
--- NOTE | 2021-03-16 07:00 | NUR ---
RT HHN not given due to pending COVID PCR results.
--- NOTE | 2021-03-16 07:00 | NUR ---
No residual from feeding GT flushed and patent. Tolerating IV ABX well. Has R hand #20G IVas Lhand #18G IV came out. No overnight issues. O2 stable on 4L via NC. Wound care to feet completed, mepilex applied, heels floated.
[2021-03-16 07:33] LABS: CALCIUM, SERUM 8.8 mg/dL (8.5-10.1); CREATININE 0.5 mg/dL (0.6-1.3); MAGNESIUM 2.1 mg/dL (1.8-2.4); PHOSPHORUS 2.4 mg/dL (2.5-4.9); POTASSIUM 3.5 mmol/L (3.5-5.1)
[2021-03-16] MEDS: IV 1/2NS 1000 ML 1,000 ML IV PRN ×2 (07:50→17:48)
[2021-03-16] MEDS: PANTOPRAZOLE 40 MG/PACK PACK GT SCH (09:14)
[2021-03-16] MEDS: ENOXAPARIN SODIUM 40 MG/0.4 ML DISP.SYRIN SQ SCH (09:14)
--- NOTE | 2021-03-16 10:27 | NUR ---
WOUND CARE CONSULT: PT PRESENTS WITH SEVERELY CONTRACTED LOWER LEGS WITH LEGS CROSSED AT THIGH, PRESENT ON ADMISSION. DRY WOUNDS NOTED TO FEET, PRESENT ON ADMISSION. THERE IS A LESION TO UPPER MIDBACK. SACRAL AREA HAS BLANCHABLE REDNESS AND IS VERY BONY. PT IS EXTREMELY THIN AND BONY. RECOMMENDATIONS MADE FOR SKIN PROTECTION. DISCUSSED WITH NURSING STAFF. DPM CONSULT CALLED TO DR WYATT. PT TO BE PLACED ON [place] [employer] LOW AIRLOSS BED. IN AGREEMENT WITH PLAN OF CARE.
[2021-03-16 12:00] VITALS: BP 127/61
--- NOTE | 2021-03-16 12:50 | NUR ---
SS note: SS requested for pt with family difficulty caring for pt. Pt is a 70-year-old, female. SW met with pt at her bedside in the med-surg unit. Pt was nonverbal. SW spoke to pt's RN, Eliud. Pt is non-verbal with Dementia. Pt was previously living at home with her spouse, Hemalatha Gonzalez, . Pt has homehealth. SW contacted pt's spouse, Hemalatha, to discuss discharge plans. Pt's spouse confirmed that the pt has homehealth and currently lives with him at home ([address] [place] [address]; [phone]). Hemalatha requested transportation for the pt at the time of D/C. CM already aware of transportation needs. No further SS intervention at this time, however, SW will remain available as needed.
[2021-03-16] MEDS ORDERED: K PHOS NEUTRAL 250 MG TABLET PO ONE (13:00)
[2021-03-16] MEDS: JEVITY 1.2 CAL 1,000 ML BOTTLE GT PRN (15:31)
[2021-03-16 16:00] VITALS: BP 127/61
--- NOTE | 2021-03-16 19:02 | NUR ---
RN NOTE PATIENT ON BED OBTUNDED, ON O2 VIA NC @ 4LPM O2 SAT OF 98% BREATHING EVEN AND UNLABORED, IV SITE ON LEFT WRIST G18 1/2 NS @ 100CC/HR PATENT INFUSING WELL, ON GT FEEDING JEVITY 1.2 @45CC/HR TOLERATING WELL, ON IV ATB NO ASE NOTED, HOFF CATHETER DRAINING WELL VIA GRAVITY NO HEMATURIA NOTED, WILL CONTINUE TO MONITOR, SAFETY MEASURE OBSERVED, BED WHEELS LOCK, CALL LIGHT WITHIN REACH. WILL ENDORSE TO NOC SHIFT.
--- NOTE | 2021-03-16 19:40 | NUR ---
MS RN NOTE PT IN BED AWAKE. NON VERBAL. MOVING IN HER BED. NO SOB, NO DISTRESS OR DISCOMFORT NOTED. NO S/S OF PAIN NOTED. IVF 1/2 NS @ 100 ML/HR INFUSING WELL RFA #18 G, NO S/S OF INFILTRATION NOTED. F/C INTACT AND PATENT DRAINING YELLOWISH COLOR URINE. KEPT HER DRY AND CLEAN. ALL NEEDS ATTENDED. SIDE RAILS UP X 3 AND CALL LIGHT WITHIN REACH. VSS. CONTINUE TO MONITOR HER.
[2021-03-16 20:00] VITALS: BP 155/54
[2021-03-16] MEDS: CEFTRIAXONE 1 G in IV D5W 50 ML IV SCH (23:35)
[2021-03-16] MEDS: AZITHROMYCIN 500 MG in IV D5W 250 ML IV SCH (23:55)
[2021-03-17] VITALS: BP 148/59
[2021-03-17] MEDS: IPRATROPIUM NEB FS 0.5 MG/2.5 ML AMPUL.NEB NEB SCH ×3 (03:34→12:01)
[2021-03-17] MEDS: ALBUTEROL HALF STRENGTH 1.25 MG/3 ML VIAL.NEB NEB SCH ×3 (03:34→12:01)
[2021-03-17 04:00] VITALS: BP 144/75
[2021-03-17] MEDS: IV 1/2NS 1000 ML 1,000 ML IV PRN (05:40)
[2021-03-17 06:01] LABS: HEMATOCRIT 40 % (33-45); HEMOGLOBIN 13.1 g/dL (11.5-14.8); LYMPHOCYTES # (AUTO) 0.7 K/uL (0.8-4.8); LYMPHOCYTES % (AUTO) 11.6 % (20.0-44.0); MEAN CORPUSCULAR HGB CONC 33 g/dl (31.0-36.0); MEAN CORPUSCULAR VOLUME 90 fL (82-100); MONOCYTES # (AUTO) 0.6 K/uL (0.1-1.30); MONOCYTES % (AUTO) 10.5 % (2.0-12.0); NEUTROPHILS # (AUTO) 4.5 K/uL (1.8-8.9); NEUTROPHILS % (AUTO) 77.9 % (43.0-81.0); PLATELET COUNT (AUTO) 123 K/uL (150-450); RED BLOOD CELL COUNT(AUTO) 4.45 MIL/uL (4.0-5.2); WHITE BLOOD COUNT (AUTO) 5.7 K/uL (4.3-11.0)
--- NOTE | 2021-03-17 06:41 | NUR ---
MS RN NOTE PT IN NO DISTRESS OR DISCOMFORT. NO S/S OF PAIN NOTED. F/C INTACT AND PATENT DRAINING YELLOWISH COLOR URINE. REPOSITION HER Q2H, KEPT HER CLEAN AND DRY. SIDE RAILS UP X 3 AND CALL LIGHT WITHIN REACH. VSS. WILL ENDORSE TO DAY SHIFT NURSE FOR CONTINUE TO CARE.
[2021-03-17 07:14] LABS: CREATININE 0.6 mg/dL (0.6-1.3); MAGNESIUM 2.1 mg/dL (1.8-2.4); POTASSIUM 3.7 mmol/L (3.5-5.1)
--- NOTE | 2021-03-17 07:20 | NUR ---
RN NOTE PATIENT ON BED OBTUNDED, ON O2 VIA NC @ 4LPM O2 SAT OF 97% BREATHING EVEN AND UNLABORED, IV SITE ON LEFT WRIST G18 1/2 NS @ 100CC/HR PATENT INFUSING WELL, ON GT FEEDING JEVITY 1.2 @45CC/HR TOLERATING WELL, ON IV ATB NO ASE NOTED, HOFF CATHETER DRAINING WELL VIA GRAVITY NO HEMATURIA NOTED, WILL CONTINUE TO MONITOR, SAFETY MEASURE OBSERVED, BED WHEELS LOCK, CALL LIGHT WITHIN REACH.
[2021-03-17] MEDS ORDERED: methylPREDNISolone SOD SUCC 40 MG/ML VIAL IV SCH (09:00)
[2021-03-17] MEDS: PANTOPRAZOLE 40 MG/PACK PACK GT SCH (10:07)
[2021-03-17] MEDS: ENOXAPARIN SODIUM 40 MG/0.4 ML DISP.SYRIN SQ SCH (10:07)
--- NOTE | 2021-03-17 10:29 | NUR ---
RN NOTE PATIENT OBSERVED IN BED, ON ROOM AIR O2 SAT OF 86%, OUT BACK NC @4LPM O2 SAT IF WITHIN 92-94% TOLERATING WELL.
[2021-03-17 12:00] VITALS: BP 138/72
--- NOTE | 2021-03-17 12:28 | NUR ---
RN NOTE PATIENT FOR DISCHARGE TO [facility], GAVE REPORT TO NURSE PALMER.
== END 2021-03-17 14:26 | DRG 189 ==
LOC: ER 20:45 → TRANSITION 03-14 04:19 → TELE-TD 03-14 07:20 → MEDSG1 03-14 07:48
PROVIDERS: ADMIT Hospitalist; ATTEND Internal Medicine
DX: J96.01 Acute respiratory failure with hypoxia (principal); J18.9 Pneumonia, unspecified organism; R53.2 Functional quadriplegia; N17.0 Acute kidney failure with tubular necrosis; E43 Unspecified severe protein-calorie malnutrition; J44.1 Chronic obstructive pulmonary disease with (acute) exacerbation; J44.0 Chronic obstructive pulmonary disease with (acute) lower respiratory infection; D68.59 Other primary thrombophilia; E87.0 Hyperosmolality and hypernatremia; R64 Cachexia; G93.40 Encephalopathy, unspecified; Z68.1 Body mass index [BMI] 19.9 or less, adult; D69.6 Thrombocytopenia, unspecified; E78.5 Hyperlipidemia, unspecified; E86.0 Dehydration; E86.1 Hypovolemia; F02.80 Dementia in other diseases classified elsewhere, unspecified severity, without behavioral disturbance, psychotic disturbance, mood disturbance, and anxiety; G20 Parkinson's disease; R13.10 Dysphagia, unspecified; Z74.01 Bed confinement status; Z87.440 Personal history of urinary (tract) infections; Z90.49 Acquired absence of other specified parts of digestive tract; Z87.891 Personal history of nicotine dependence; Z87.01 Personal history of pneumonia (recurrent); Z93.1 Gastrostomy status; Z86.73 Personal history of transient ischemic attack (TIA), and cerebral infarction without residual deficits; I11.0 Hypertensive heart disease with heart failure; I50.9 Heart failure, unspecified; Z20.822 Contact with and (suspected) exposure to COVID-19; Z99.81 Dependence on supplemental oxygen; E88.09 Other disorders of plasma-protein metabolism, not elsewhere classified; M24.562 Contracture, left knee; M24.561 Contracture, right knee; M20.42 Other hammer toe(s) (acquired), left foot; M20.41 Other hammer toe(s) (acquired), right foot; R62.7 Adult failure to thrive; L89.626 Pressure-induced deep tissue damage of left heel; L89.616 Pressure-induced deep tissue damage of right heel; L89.896 Pressure-induced deep tissue damage of other site; G31.85 Corticobasal degeneration
CPT/HCPCS: 36415; 71045-TC; 80048-TC; 80053-TC; 80061-TC; 80076-TC; 82550-TC; 82728-TC; 83605-TC; 83615-TC; 83735-TC; 83880; 84100-TC; 84484-TC; 85025-TC; 85378-TC; 86140-TC; 87040-TC; 87081-TC; 87086-TC; 92526; 92611-TC; 97112-TC; 97530-TC; C9113; C9803; G0378; J0456; J0696; J1650; J2405; J2920; J3490; J7030; J7060; U0003